=== PATIENT | female | born 1970 | race Caucasian/White ===

== ENCOUNTER → 2017-08-26 | Day surgery (SDC) | payer OTHER ==
[~2017-08-26] MED LIST: BUPIVACAINE HCL PF 0.75% 30 ML VIAL ONE; LACTATED RINGER'S 1000 ML INJ 1,000 ML ONE; LIDOCAINE 1.5%/EPINEPHrine 1:200,000 PF SOLN 30 ML AMP ONE; MIDAZOLAM HCL 5 MG/ML VIAL (1 ML) ONE; ONDANSETRON HCL 4 MG/2 ML VIAL IV PUSH ONE; PROPOFOL 200 MG/20 ML AMP IV ONE; ceFAZolin 2 GM PREMIX 50 ML ONE
--- NOTE | 2017-08-27 07:59 | MP ---
cc: ESTEPHANIA CANTU M.D. DATE OF SURGERY 08/26/2017 PREOPERATIVE DIAGNOSIS Right shoulder rotator cuff tear, right shoulder impingement syndrome, right shoulder labral tear with chondromalacia. POSTOPERATIVE DIAGNOSES Right shoulder rotator cuff tear, right shoulder impingement syndrome, right shoulder labral tear with chondromalacia. PROCEDURE Right shoulder arthroscopic rotator cuff repair, right shoulder arthroscopic subacromial decompression, right shoulder arthroscopic extensive debridement of the labral tear with chondroplasty glenohumeral joint. SURGEON Dr. Estephania Cantu ASSOCIATE VICE PRESIDENT ABEL Walters ANESTHESIA General with an anterior interscalene block. ESTIMATED BLOOD LOSS Less than 10 cc COMPLICATIONS None IMPLANTS USED Arthrex JUSTIFICATION This patient is a 47-year-old female who has had a previous right shoulder rotator cuff repair several years ago. She reinjured the right shoulder and has persistent pain and weakness. She has failed conservative. Clinical exam, as well as MRI confirmed the above-named findings. The patient counseled as to the risks, benefits and alternatives to the above-named surgical procedure. She did wish to proceed with surgery. PROCEDURE IN DETAIL A written consent was obtained. The patient identified by name, taken to the operating room, placed supine on the operating room table and general anesthesia was administered as well as two grams of IV Ancef. She did receive a preoperative anterior interscalene block to the right upper extremity. The patient was carefully turned to the left lateral decubitus position. A lateral arm roll was placed. All bony prominences and pressure points were well padded. The right upper extremity was placed in an arthroscopic arm lopez and 10 pounds of traction applied. The right shoulder prepped and draped using as Isopropyl alcohol, Hibiclens solution and DuraPrep solution. After a time-out was performed, a standard posterior and anterior glenohumeral arthroscopic portal was established. The glenohumeral joint revealed extensive evidence of labral tearing along the anterior, superior and posterior portions. An arthroscopic shaver was introduced into the anterior portal and extensive debridement of the labrum was performed from the anterior 3 o'clock position up to the superior 12 o'clock position and back down to the 9 o'clock posterior position. There was evidence of chondromalacia of the humeral head which also debrided and a chondroplasty performed using a arthroscopic shaver. Attention was turned to the subacromial space where there was evidence of extensive bursitis and impingement. An arthroscopic shaver was introduced from lateral portal. A subacromial decompression was performed. The shaver was used to perform extensive bursectomy and a bur was used to perform acromioplasty. The cautery device was used to release the coracoacromial ligament. There was evidence of full-thickness rotator cuff tendon tear involving the supraspinatus tendon. An Arthrex scorpion device was used to shuttle #2 FiberTape suture in a horizontal mattress pattern through the torn tendon along with a #2 FiberLink suture. The sutures were then placed through the eyelet of an Arthrex 4.75 mm Bio SwiveLock anchor. The sutures were tensioned and the anchor inserted in the greater tuberosity for surgical repair. The repair was probed and noted to have good stability and fixation after insertion of the anchor. At the conclusion of the surgical procedure, the arthroscopic portals were closed with 3-0 Prolene suture. Sterile dressing applied. The patient placed in a sling and swath immobilizer and tolerated the procedure with no intraoperative complications noted. Dale Brown, physician it assistant certified was present during the entire procedure to include patient positioning and the procedure itself. The medical necessity of a physician it assistant was indicated in this case due to the complexity of the procedure. He assisted with manipulation of the arm and also manipulation of the camera, assisted with shuttling of sutures and also implantation of suture anchor. MD CORA Hyde/KEVIN /4:09 PM /7:50 AM
== END | disposition home or self-care (01) ==
LOC: ESDC 13:05
PROVIDERS: ATTEND Orthopaedic Surgery Sports Medicine
DX: M75.101 Unspecified rotator cuff tear or rupture of right shoulder, not specified as traumatic (principal); M75.41 Impingement syndrome of right shoulder; S43.401A Unspecified sprain of right shoulder joint, initial encounter; M94.211 Chondromalacia, right shoulder
CPT/HCPCS: 01630; 01991; 29823; 29826; 29827; 64417; 76942; C1713; J0690; J2250; J2405; J7120